=== PATIENT | female | born 1995 | race American Indian/Alaskan Native ===

== ENCOUNTER 2016-07-16 10:45 | Emergency (ER) | payer SELFPAY ==
[2016-07-16 11:00] VITALS: BP 130/87
== END 2016-07-16 11:00 | disposition left against medical advice (07) ==
LOC: ED 10:45
DX: R51 Headache (principal); R06.02 Shortness of breath; Z53.21 Procedure and treatment not carried out due to patient leaving prior to being seen by health care provider

== ENCOUNTER 2016-10-05 16:39 | Emergency (ER) | payer SELFPAY ==
--- NOTE | 2016-10-05 19:48 | Emergency Department Report ---
- General Chief complaint: Wound/Laceration Stated complaint: NAIL CAME OFF/INFECTED Time Seen by Provider: 10/05/16 19:39 Source: patient Mode of arrival: Ambulatory Limitations: No Limitations - History of Present Illness Initial comments: 21-year-old female presents to emergency room with complaints of left fifth finger nail injury since Sunday. Patient states he accidentally pulled off her acrylic nail along with the nail underneath on Sunday. This complaint of pain since then. Denies any tingling or numbness. Denies any fever. MD complaint: other (left 5th fingernail injury) -: Gradual, days(s) (4 days) Tetanus Up to Date: yes Location: LUE (left 5th finger) Severity: mild Severity scale (0 -10): 2 Quality: aching, dull Consistency: constant Improves with: none Worsens with: palpation, movement Context: other (nail avulsion) Associated symptoms: denies other symptoms - Related Data Previous Rx's Medication Instructions Recorded Last Taken Type Ondansetron [Zofran Odt] 4 mg PO Q8HR PRN #4 tab.rapdis 01/05/15 Unknown Rx Vit-Fe Fumar-FA [ 1 each PO QDAY #30 tablet 01/05/15 Unknown Rx Vitamin] Azithromycin [Zithromax Z-NOEL] 0 mg PO DAILY 5 Days 09/20/15 Unknown Rx Benzonatate [Tessalon Perles] 100 mg PO Q8HR #30 capsule 09/20/15 Unknown Rx Ibuprofen [Motrin] 800 mg PO Q8HR PRN #30 tablet 09/20/15 Unknown Rx traMADol [Ultram 50 MG tab] 50 mg PO Q6HR PRN #20 tablet 09/20/15 Unknown Rx Sulfamethoxazole/Trimethoprim 1 each PO BID #14 tablet 10/05/16 Unknown Rx [Bactrim DS TAB] traMADol [Ultram] 50 mg PO Q6HR PRN #12 tablet 10/05/16 Unknown Rx Allergies Allergy/AdvReac Type Severity Reaction Status Date / Time No Known Allergies Allergy Verified 09/28/15 18:25 Abscess Boil HPI - HPI Chief Complaint: Wound/Laceration Stated Complaint: NAIL CAME OFF/INFECTED Time Seen by Provider: 10/05/16 19:39 Home Medications: Previous Rx's Medication Instructions Recorded Last Taken Type Ondansetron [Zofran Odt] 4 mg PO Q8HR PRN #4 tab.rapdis 01/05/15 Unknown Rx Vit-Fe Fumar-FA [ 1 each PO QDAY #30 tablet 01/05/15 Unknown Rx Vitamin] Azithromycin [Zithromax Z-NOEL] 0 mg PO DAILY 5 Days 09/20/15 Unknown Rx Benzonatate [Tessalon Perles] 100 mg PO Q8HR #30 capsule 09/20/15 Unknown Rx Ibuprofen [Motrin] 800 mg PO Q8HR PRN #30 tablet 09/20/15 Unknown Rx traMADol [Ultram 50 MG tab] 50 mg PO Q6HR PRN #20 tablet 09/20/15 Unknown Rx Sulfamethoxazole/Trimethoprim 1 each PO BID #14 tablet 10/05/16 Unknown Rx [Bactrim DS TAB] traMADol [Ultram] 50 mg PO Q6HR PRN #12 tablet 10/05/16 Unknown Rx Allergies/Adverse Reactions: Allergies Allergy/AdvReac Type Severity Reaction Status Date / Time No Known Allergies Allergy Verified 09/28/15 18:25 ED Review of Systems ROS: Stated complaint: NAIL CAME OFF/INFECTED Other details as noted in HPI Comment: All other systems reviewed and negative Constitutional: denies: chills, fever Eyes: denies: eye pain, eye discharge, vision change ENT: denies: ear pain, throat pain Respiratory: denies: cough, shortness of breath, wheezing Cardiovascular: denies: chest pain, palpitations Endocrine: no symptoms reported Gastrointestinal: denies: abdominal pain, nausea, diarrhea Genitourinary: denies: urgency, dysuria, discharge Musculoskeletal: as per HPI, other (left 5th fingernail injury). denies: back pain, joint swelling, arthralgia Skin: as per HPI. denies: rash, lesions Neurological: denies: headache, weakness, paresthesias Psychiatric: denies: anxiety, depression Hematological/Lymphatic: denies: easy bleeding, easy bruising ED Past Medical Hx - Past Medical History Hx Hypertension: Yes (-induced HTN) Hx Congestive Heart Failure: No Hx Diabetes: No Hx Deep Vein Thrombosis: No Hx Renal Disease: No Hx Sickle Cell Disease: No Hx Seizures: (During ) Hx Asthma: No Hx COPD: No Hx HIV: No Additional medical history: OBESITY - Surgical History Additional Surgical History: 05/13/14 - Social History Smoking Status: Never Smoker Substance Use Type: None - Medications Home Medications: Home Medications Medication Instructions Recorded Confirmed Last Taken Type Ondansetron [Zofran Odt] 4 mg PO Q8HR PRN #4 tab.rapdis 01/05/15 Unknown Rx Vit-Fe Fumar-FA [ 1 each PO QDAY #30 tablet 01/05/15 Unknown Rx Vitamin] Azithromycin [Zithromax Z-NEOL] 0 mg PO DAILY 5 Days 09/20/15 Unknown Rx Benzonatate [Tessalon Perles] 100 mg PO Q8HR #30 capsule 09/20/15 Unknown Rx Ibuprofen [Motrin] 800 mg PO Q8HR PRN #30 tablet 09/20/15 Unknown Rx traMADol [Ultram 50 MG tab] 50 mg PO Q6HR PRN #20 tablet 09/20/15 Unknown Rx Sulfamethoxazole/Trimethoprim 1 each PO BID #14 tablet 10/05/16 Unknown Rx [Bactrim DS TAB] traMADol [Ultram] 50 mg PO Q6HR PRN #12 tablet 10/05/16 Unknown Rx ED Physical Exam - General Limitations: No Limitations General appearance: alert, in no apparent distress - Head Head exam: Present: atraumatic, normocephalic - Eye Eye exam: Present: normal appearance - ENT ENT exam: Present: mucous membranes moist - Neck Neck exam: Present: normal inspection - Respiratory Respiratory exam: Present: normal lung sounds bilaterally. Absent: respiratory distress - Cardiovascular Cardiovascular Exam: Present: regular rate, normal rhythm. Absent: systolic murmur, diastolic murmur, rubs, gallop - GI/Abdominal GI/Abdominal exam: Present: soft, normal bowel sounds - Extremities Exam Extremities exam: Present: normal inspection, full ROM, tenderness (at the left 5th finger nail), normal capillary refill - Back Exam Back exam: Present: normal inspection - Neurological Exam Neurological exam: Present: alert, oriented X3 - Psychiatric Psychiatric exam: Present: normal affect, normal mood - Skin Skin exam: Present: warm, dry, intact, normal color. Absent: rash ED Course Vital Signs 10/05/16 17:24 Temperature 98.6 F Pulse Rate 78 Respiratory 18 Rate Blood Pressure 126/72 O2 Sat by Pulse 99 Oximetry Critical Care Time: No Critical care attestation.: If time is entered above; I have spent that time in minutes in the direct care of this critically ill patient, excluding procedure time. ED Disposition Clinical Impression: Traumatic avulsion of nail plate of finger Qualifiers: Encounter type: initial encounter Qualified Code(s): S61.309A - Unspecified open wound of unspecified finger with damage to nail, initial encounter Disposition: DISCHARGED TO HOME OR SELFCARE Is pt being admited?: No Does the pt Need Aspirin: No Condition: Good Instructions: Wound Infection (ED) Prescriptions: Sulfamethoxazole/Trimethoprim [Bactrim DS TAB] 1 each PO BID #14 tablet traMADol [Ultram] 50 mg PO Q6HR PRN #12 tablet PRN Reason: Pain Referrals: PRIMARY CARE, [Primary Care Provider] - 3-5 Days
[2016-10-05] MEDS ORDERED: TRIPLE ANTIBIOTIC TP ONE (19:49)
[2016-10-05 20:21] VITALS: BP 122/70
== END 2016-10-05 20:21 | disposition home or self-care (01) ==
LOC: ED 16:39
DX: S61.207A Unspecified open wound of left little finger without damage to nail, initial encounter (principal); X58.XXXA Exposure to other specified factors, initial encounter; Y93.89 Activity, other specified; Y99.8 Other external cause status; Y92.89 Other specified places as the place of occurrence of the external cause
CPT/HCPCS: 99282; A6250

== ENCOUNTER 2017-05-29 22:08 | Emergency (ER) | payer MEDICAID ==
[2017-05-29 22:13] VITALS: BP 135/83
[2017-05-30] MEDS ORDERED: TYLENOL PO ONE (00:40)
[2017-05-30] MEDS ORDERED: TYLENOL ONE (00:43)
== END 2017-05-30 06:58 | disposition left against medical advice (07) ==
LOC: ED 22:08
DX: L02.31 Cutaneous abscess of buttock (principal); Z53.21 Procedure and treatment not carried out due to patient leaving prior to being seen by health care provider

== ENCOUNTER 2017-05-30 07:47 | Emergency (ER) | payer MEDICAID ==
[2017-05-30 07:57] VITALS: BP 127/83
[2017-05-30] MEDS ORDERED: XYLOCAINE TOPICAL 2% 30ML TP ONE (10:53)
[2017-05-30] MEDS ORDERED: XYLOCAINE TOPICAL 2% 5ML ONE (11:01)
--- NOTE | 2017-05-30 11:19 | Emergency Department Report ---
HPI - General Chief Complaint: Skin/Abscess/Foreign Body Time Seen by Provider: 05/30/17 10:34 - HPI HPI: She is a 22-year-old female presents to ED complaining of buttock pain for the past 2 days. Patient states she has been constipated but had a bowel movement yesterday. Patient states shortly after the bowel movement she started experiencing some swelling and pain to her buttock upper region. She states of the left buttock upper cheek in that region is irritated and she noticed some yellowish drainage and mild redness. She had tenderness fever/chills/nausea/vomiting/abdominal pain/pelvic/vaginal discharge, dysuria or any other problems. ED Past Medical Hx - Past Medical History Previous Medical History?: Yes Hx Hypertension: (-induced HTN) Hx Congestive Heart Failure: No Hx Diabetes: No Hx Deep Vein Thrombosis: No Hx Renal Disease: No Hx Sickle Cell Disease: No Hx Seizures: (During ) Hx Asthma: No Hx COPD: No Hx HIV: No Additional medical history: OBESITY - Surgical History Past Surgical History?: Yes Additional Surgical History: 05/13/14 - Social History Smoking Status: Never Smoker Substance Use Type: Non Opiate Pain - Medications Home Medications: Home Medications Medication Instructions Recorded Confirmed Last Taken Type Ondansetron [Zofran Odt] 4 mg PO Q8HR PRN #4 tab.rapdis 01/05/15 Unknown Rx Vit-Fe Fumar-FA [ 1 each PO QDAY #30 tablet 01/05/15 Unknown Rx Vitamin] Azithromycin [Zithromax Z-NOEL] 0 mg PO DAILY 5 Days tab 09/20/15 Unknown Rx Benzonatate [Tessalon Perles] 100 mg PO Q8HR #30 capsule 09/20/15 Unknown Rx traMADol [Ultram 50 MG tab] 50 mg PO Q6HR PRN #20 tablet 09/20/15 Unknown Rx traMADol [Ultram] 50 mg PO Q6HR PRN #12 tablet 10/05/16 Unknown Rx Ibuprofen [Motrin 800 MG tab] 800 mg PO Q8HR PRN #30 tablet 05/30/17 Unknown Rx Sulfamethoxazole/Trimethoprim 1 each PO BID #14 tablet 05/30/17 Unknown Rx [Bactrim DS TAB] ED Review of Systems ROS: Stated complaint: ABSCESS ON BUTTOCK Other details as noted in HPI Constitutional: denies: chills, fever Eyes: denies: eye pain, eye discharge, vision change ENT: denies: ear pain, throat pain Respiratory: denies: cough, shortness of breath, wheezing Cardiovascular: denies: chest pain, palpitations Endocrine: no symptoms reported Gastrointestinal: denies: abdominal pain, nausea, diarrhea Genitourinary: denies: urgency, dysuria, discharge Musculoskeletal: denies: back pain, joint swelling, arthralgia Skin: denies: rash, lesions Neurological: denies: headache, weakness, paresthesias Psychiatric: denies: anxiety, depression Hematological/Lymphatic: denies: easy bleeding, easy bruising Physical Exam - Physical Exam Vital Signs: Vital Signs 05/30/17 07:53 Temperature 97.9 F Pulse Rate 98 H Respiratory 20 Rate Blood Pressure 127/83 O2 Sat by Pulse 97 Oximetry Physical Exam: GENERAL: Alert and oriented x3, no apparent distress, Normal Gait, atraumatic. HEAD: Head is normocephalic and a-traumatic. LUNGS: Symetrical with respiration, No wheezing, no rales or crackles, CTAB. HEART: S1, S2 present, regular rate and rhythm without murmur, no rubs, no gallops. Non tender to palpation ABDOMEN: No organomegaly was noted,Positive bowel sounds, soft, and non- distended. . Nontender to palpation on all Quadrants, NO CVA tenderness. BACK: Full range of motion, no spinal tenderness, nontender to palpation. GENITOURINARY: External genitalia without erythema, exudate or discharge. RECTUM: Left upper buttock mildly erythematous, cellulitis, tender to palpation , 2cm in diameter, non drainage,non bleeding. No hemorrhoids SKIN: Warm and dry, No lesions, No ulceration or induration present. ED Course Vital Signs 05/30/17 07:53 Temperature 97.9 F Pulse Rate 98 H Respiratory 20 Rate Blood Pressure 127/83 O2 Sat by Pulse 97 Oximetry ED Medical Decision Making - Medical Decision Making 22-year-old female presents with left buttock cellulitis ED course: Topical lidocaine applied to area of cellulitis I discussed with patient that she will need to do sits baths him do warm compression 2 times a day. Patient's declines trained to 2 pain and states she will take some antibiotics and return if he gets worse. Area of cellulitis is about 2 cm, no bleeding, no pus discharge I discussed the patient with home on trial of antibiotics and pain medication and to return if symptoms worsen I discussed the patient that the cellulitis the resolve on its own. I find discussed the patient follow up with primary care physician Vital signs are normal, she is in no acute distress, she understands instructions given Critical care attestation.: If time is entered above; I have spent that time in minutes in the direct care of this critically ill patient, excluding procedure time. ED Disposition Clinical Impression: Cellulitis of perianal area Disposition: TO HOME OR SELFCARE Is pt being admited?: No Does the pt Need Aspirin: No Condition: Stable Instructions: Cellulitis (ED), Anorectal Abscess and Anal Fistula (ED), Sitz Bath (GEN) Additional Instructions: Make sure to follow up with the primary care physician as discussed. Take all your medications as you've been prescribed. If you have any worsening symptoms or develop new symptoms please return to ED immediately. Take all your antibiotics. Prescriptions: Ibuprofen [Motrin 800 MG tab] 800 mg PO Q8HR PRN #30 tablet PRN Reason: Pain Sulfamethoxazole/Trimethoprim [Bactrim DS TAB] 1 each PO BID #14 tablet Referrals: PRIMARY CARE, [Primary Care Provider] - 3-5 Days [facility] [Outside] - 3-5 Days [facility] [Outside] - 3-5 Days [facility] [Outside] - 3-5 Days Forms: Accompanied Note, Work/School Release Form(ED) Time of Disposition: 13:07
[2017-05-30] MEDS ORDERED: REGLAN PO ONE (11:38)
[2017-05-30] MEDS ORDERED: BENADRYL PO ONE (11:38)
== END 2017-05-30 13:41 | disposition home or self-care (01) ==
LOC: ED 07:47
DX: L03.317 Cellulitis of buttock (principal)
CPT/HCPCS: 99282; Q0163

== ENCOUNTER 2017-09-29 08:26 | Emergency (ER) | payer MEDICAID ==
[2017-09-29 09:03] LABS: Basophils # (Auto) 0.1 K/mm3 (0.0-0.1); Basophils % (Auto) 0.4 % (0.0-1.8); Eosinophils # (Auto) 0.1 K/mm3 (0.0-0.4); Eosinophils % (Auto) 0.4 % (0.0-4.3); Hematocrit 44.2 % (30.3-42.9); Hemoglobin 13.9 gm/dl (10.1-14.3); Lymphocytes # (Auto) 2.3 K/mm3 (1.2-5.4); Lymphocytes % (Auto) 15.4 % (13.4-35.0); Mean Corpuscular HGB Conc 32 % (30-34); Mean Corpuscular Volume 79 fl (79-97); Monocytes # (Auto) 0.7 K/mm3 (0.0-0.8); Monocytes % (Auto) 4.6 % (0.0-7.3); Platelet Count 338 K/mm3 (140-440); Red Blood Count 5.58 M/mm3 (3.65-5.03); Red Cell Distribution Width 14.6 % (13.2-15.2)
[2017-09-29 09:04] LABS: Mean Corpuscular Hemoglobin 25 pg (28-32)
[2017-09-29 09:05] LABS: HCG Qualitative,Urine Negative (Negative)
[2017-09-29 09:06] LABS: Bacteria,Urine 2+ /HPF (Negative); Bilirubin,Urine NEG (Negative); Blood,Urine LG (Negative); Color,Urine Yellow (Yellow); Urobilinogen,Urine < 2.0 mg/dL (<2.0)
[2017-09-29 09:10] LABS: RBC,Urine > 182.0 /HPF (0.0-6.0); WBC,Urine > 182.0 /HPF (0.0-6.0)
[2017-09-29 09:23] LABS: BUN/Creatinine Ratio 17; Blood Urea Nitrogen 12 mg/dL (7-17); Calcium 9.6 mg/dL (8.4-10.2); Hemolysis Index 7
[2017-09-29] MEDS ORDERED: ROCEPHIN IM ONE (11:21)
[2017-09-29] MEDS ORDERED: XYLOCAINE 1% MPF 5 mL INFILTRATI ONE (11:21)
--- NOTE | 2017-09-29 11:24 | Emergency Department Report ---
ED Abdominal Pain HPI - General Chief Complaint: Abdominal Pain Stated Complaint: ABDOMINAL PAIN Time Seen by Provider: 09/29/17 10:59 Source: patient Mode of arrival: Ambulatory Limitations: Language Barrier - History of Present Illness Initial Comments: Patient has been having pelvic pain for two days. She has also been "spotting" . She states she had her menstrual cycle twice in August, once at the beginning , and once at the end of the month. Both times it lasted 5 days. MD Complaint: abdominal pain -: days(s) (2) Severity scale (0 -10): 3 - Related Data Previous Rx's Medication Instructions Recorded Last Taken Type Ondansetron [Zofran Odt] 4 mg PO Q8HR PRN #4 tab.rapdis 01/05/15 Unknown Rx Vit-Fe Fumar-FA [ 1 each PO QDAY #30 tablet 01/05/15 Unknown Rx Vitamin] Azithromycin [Zithromax Z-NOEL] 0 mg PO DAILY 5 Days tab 09/20/15 Unknown Rx Benzonatate [Tessalon Perles] 100 mg PO Q8HR #30 capsule 09/20/15 Unknown Rx traMADol [Ultram 50 MG tab] 50 mg PO Q6HR PRN #20 tablet 09/20/15 Unknown Rx traMADol [Ultram] 50 mg PO Q6HR PRN #12 tablet 10/05/16 Unknown Rx Ibuprofen [Motrin 800 MG tab] 800 mg PO Q8HR PRN #30 tablet 05/30/17 Unknown Rx Sulfamethoxazole/Trimethoprim 1 each PO BID #14 tablet 05/30/17 Unknown Rx [Bactrim DS TAB] Ciprofloxacin HCl [Cipro] 250 mg PO BID 7 Days #14 tablet 09/29/17 Unknown Rx Allergies Allergy/AdvReac Type Severity Reaction Status Date / Time No Known Allergies Allergy Verified 05/29/17 22:11 ED Review of Systems ROS: Stated complaint: ABDOMINAL PAIN Other details as noted in HPI Constitutional: denies: chills, fever Eyes: denies: eye pain, eye discharge, vision change ENT: denies: ear pain, throat pain Respiratory: denies: cough, shortness of breath, wheezing Cardiovascular: denies: chest pain, palpitations Endocrine: no symptoms reported Gastrointestinal: denies: abdominal pain, nausea, diarrhea Genitourinary: abnormal menses, other (pelvic pain). denies: urgency, dysuria, discharge Musculoskeletal: denies: back pain, joint swelling, arthralgia Skin: denies: rash, lesions Neurological: denies: headache, weakness, paresthesias Psychiatric: denies: anxiety, depression Hematological/Lymphatic: denies: easy bleeding, easy bruising ED Past Medical Hx - Past Medical History Hx Hypertension: (-induced HTN) Hx Congestive Heart Failure: No Hx Diabetes: No Hx Deep Vein Thrombosis: No Hx Renal Disease: No Hx Sickle Cell Disease: No Hx Seizures: (During ) Hx Asthma: No Hx COPD: No Hx HIV: No Additional medical history: OBESITY, eclampsia - Surgical History Past Surgical History?: Yes Additional Surgical History: 05/13/14 - Social History Smoking Status: Never Smoker Substance Use Type: None - Medications Home Medications: Home Medications Medication Instructions Recorded Confirmed Last Taken Type Ondansetron [Zofran Odt] 4 mg PO Q8HR PRN #4 tab.rapdis 01/05/15 Unknown Rx Vit-Fe Fumar-FA [ 1 each PO QDAY #30 tablet 01/05/15 Unknown Rx Vitamin] Azithromycin [Zithromax Z-NOEL] 0 mg PO DAILY 5 Days tab 09/20/15 Unknown Rx Benzonatate [Tessalon Perles] 100 mg PO Q8HR #30 capsule 09/20/15 Unknown Rx traMADol [Ultram 50 MG tab] 50 mg PO Q6HR PRN #20 tablet 09/20/15 Unknown Rx traMADol [Ultram] 50 mg PO Q6HR PRN #12 tablet 10/05/16 Unknown Rx Ibuprofen [Motrin 800 MG tab] 800 mg PO Q8HR PRN #30 tablet 05/30/17 Unknown Rx Sulfamethoxazole/Trimethoprim 1 each PO BID #14 tablet 05/30/17 Unknown Rx [Bactrim DS TAB] Ciprofloxacin HCl [Cipro] 250 mg PO BID 7 Days #14 tablet 09/29/17 Unknown Rx ED Physical Exam - General Limitations: Language Barrier General appearance: alert, in no apparent distress - Head Head exam: Present: atraumatic, normocephalic - Eye Eye exam: Present: normal appearance - ENT ENT exam: Present: mucous membranes moist - Neck Neck exam: Present: normal inspection - Respiratory Respiratory exam: Present: normal lung sounds bilaterally. Absent: respiratory distress - Cardiovascular Cardiovascular Exam: Present: regular rate, normal rhythm. Absent: systolic murmur, diastolic murmur, rubs, gallop - GI/Abdominal GI/Abdominal exam: Present: soft, tenderness (suprapubic), normal bowel sounds - Extremities Exam Extremities exam: Present: normal inspection - Back Exam Back exam: Present: normal inspection - Neurological Exam Neurological exam: Present: alert, oriented X3 - Psychiatric Psychiatric exam: Present: normal affect, normal mood - Skin Skin exam: Present: warm, dry, intact, normal color. Absent: rash ED Course Vital Signs 09/29/17 09/29/17 08:30 10:45 Temperature 98.6 F Pulse Rate 73 67 Respiratory 16 Rate Blood Pressure 132/82 Blood Pressure 138/83 [Left] O2 Sat by Pulse 99 99 Oximetry - Reevaluation(s) Reevaluation #1: 09/29/17 11:20 Uneventful course of stay. ED Medical Decision Making - Lab Data Result diagrams: 09/29/17 08:43 09/29/17 08:43 - Medical Decision Making Review of labs - Patient has a 14.2 WBC; Urine: elevated WBC and RBCs. - Differential Diagnosis UTI; STD Critical care attestation.: If time is entered above; I have spent that time in minutes in the direct care of this critically ill patient, excluding procedure time. ED Disposition Clinical Impression: UTI (urinary tract infection) Disposition: - TO HOME OR SELFCARE Is pt being admited?: No Does the pt Need Aspirin: No Condition: Stable Instructions: Abdominal Pain (ED) Additional Instructions: UTI Prescriptions: Ciprofloxacin HCl [Cipro] 250 mg PO BID 7 Days #14 tablet Referrals: CHELLE FAULKNER MD [Primary Care Provider] - 3-5 Days Time of Disposition: 11:33
[2017-09-29 12:06] VITALS: BP 129/78
== END 2017-09-29 12:05 | disposition home or self-care (01) ==
LOC: ED 08:26
DX: N39.0 Urinary tract infection, site not specified (principal)
CPT/HCPCS: 36415; 80048; 81001; 81025; 85025; 96372; 99283; J0696

== ENCOUNTER 2019-02-14 11:19 | Emergency (ER) | payer SELFPAY ==
[2019-02-14 11:32] VITALS: BP 129/65
--- NOTE | 2019-02-14 11:32 | Event Note ---
ED Screening Note ED Screening Note: LMP 7-9, NO OB CARE, JUST FOUND OUT 2 DAYS AGO PAIN MID BACK NO VAG BLEED NO VAG DC NO DYSURIA NO CONTROL PMH NONE PSH CSEC RX NONE OB [facility] This initial assessment/diagnostic orders/clinical plan/treatment(s) is/are subject to change based on patients health status, clinical progression and re- assessment by fellow clinical providers in the ED. Further treatment and workup at subsequent clinical providers discretion. Patient/guardian urged not to elope from the ED as their condition may be serious if not clinically assessed and managed. Initial orders include: UA/ PREG
[2019-02-14 12:01] LABS: Bacteria,Urine 2+ /HPF (Negative); Bilirubin,Urine NEG (Negative); Blood,Urine NEG (Negative); Color,Urine Yellow (Yellow); Mucus,Urine FEW /HPF; Protein,Urine <15 mg/dL mg/dL (Negative)
[2019-02-14 12:09] LABS: Hematocrit 39.3 % (30.3-42.9); Hemoglobin 13.5 gm/dl (10.1-14.3); Mean Corpuscular HGB Conc 34 % (30-34); Mean Corpuscular Volume 81 fl (79-97); Platelet Count 251 K/mm3 (140-440); Red Blood Count 4.86 M/mm3 (3.65-5.03); Red Cell Distribution Width 14.6 % (13.2-15.2)
[2019-02-14 12:13] LABS: HCG Qualitative,Urine Positive (Negative)
[2019-02-14 12:39] LABS: BUN/Creatinine Ratio 10; Blood Urea Nitrogen 6 mg/dL (7-17); Calcium 9.2 mg/dL (8.4-10.2); Hemolysis Index 8
--- NOTE | 2019-02-14 15:01 | Ultrasound Report ---
FIRSTTRIMESTER OBSTETRIC ULTRASOUND HISTORY: Vaginal bleeding, pain COMPARISON: None. TECHNIQUE: Routine transabdominal OB ultrasound performed. FINDINGS: Uterus: Mildly enlarged measuring 10.5 x 5.8 x 5.8 cm. Gestational Sac: Well-defined oval shape and intrauterine in location. Average gestational sac diame ter measures 14 mm which correlates with a 6 week 2 day . Yolk Sac: Normal in appearance. Fetus/Embryo: Normal in appearance. [place]-rump length was too small to measure and the patient refuse d transvaginal imaging. Embryonic/ cardiac activity: 112bpm Placenta: Too small for evaluation. Amniotic fluid volume: Subjectively appropriate for gestational age. Ovaries: The ovaries are not visualized. No adnexal cyst or mass. Additional findings: None. IMPRESSION Early live intrauterine . No acute abnormality is detected. Signer Name: Aric Mcmahan Jr, MD Signed: 02/14/2019 2:56 PM Workstation Name: [id number]
--- NOTE | 2019-02-14 16:26 | Emergency Department Report ---
Blank Doc - Documentation Documentation: 23-year-old female came in for positive test and abdominal pain. This provider made attempt to evaluate patient but she was not in exam room. It was reported the patient has left. Patient has eloped. Attending provider Dr. Prema Lopez is aware of the patient leaving without being evaluated.
== END 2019-02-14 13:45 | disposition left against medical advice (07) ==
LOC: ED 11:19
DX: R10.9 Unspecified abdominal pain (principal); Z53.21 Procedure and treatment not carried out due to patient leaving prior to being seen by health care provider
CPT/HCPCS: 36415; 76801; 80048; 81001; 81025; 84702; 85027; 86900; 86901

== ENCOUNTER 2019-03-24 10:26 | Emergency (ER) | payer OTHER ==
[2019-03-24 10:36] VITALS: BP 130/77
[2019-03-24 12:11] LABS: Basophils # (Auto) 0.1 K/mm3 (0.0-0.1); Basophils % (Auto) 0.5 % (0.0-1.8); Eosinophils # (Auto) 0.2 K/mm3 (0.0-0.4); Eosinophils % (Auto) 1.4 % (0.0-4.3); Hematocrit 39.8 % (30.3-42.9); Hemoglobin 13.2 gm/dl (10.1-14.3); Lymphocytes # (Auto) 2.2 K/mm3 (1.2-5.4); Lymphocytes % (Auto) 19.8 % (13.4-35.0); Mean Corpuscular HGB Conc 33 % (30-34); Mean Corpuscular Volume 80 fl (79-97); Monocytes # (Auto) 0.6 K/mm3 (0.0-0.8); Monocytes % (Auto) 5.7 % (0.0-7.3); Platelet Count 283 K/mm3 (140-440); Red Blood Count 4.98 M/mm3 (3.65-5.03); Red Cell Distribution Width 13.8 % (13.2-15.2)
[2019-03-24 12:28] LABS: Alanine Aminotransferase 11 units/L (7-56); Albumin 4.1 g/dL (3.9-5); BUN/Creatinine Ratio 10; Blood Urea Nitrogen 5 mg/dL (7-17); Calcium 9.8 mg/dL (8.4-10.2); Hemolysis Index 0
[2019-03-24 12:36] LABS: Bacteria,Urine 1+ /HPF (Negative); Bilirubin,Urine NEG (Negative); Blood,Urine LG (Negative); Color,Urine Yellow (Yellow); Protein,Urine <15 mg/dL mg/dL (Negative); RBC,Urine < 1.0 /HPF (0.0-6.0)
--- NOTE | 2019-03-24 12:58 | Ultrasound Report ---
FIRSTTRIMESTER OBSTETRIC ULTRASOUND HISTORY: 8 weeks with abdominal pain and vaginal bleeding COMPARISON: 02/14/2019 TECHNIQUE: Routine transabdominal OB ultrasound performed. FINDINGS: Uterus: Mildly enlarged measuring 14.6 x 7.2 x 8.7 cm. Gestational Sac: Well-defined oval shape and intrauterine in location. Yolk Sac: Normal in appearance. Fetus/Embryo: [place]-rump length of 5.4 cm, corresponding to an estimated gestational age of 12 weeks 0 days. Embryonic/ anatomy is too small for evaluation. Embryonic/ cardiac activity: 156bpm Placenta: Too small for evaluation. Amniotic fluid volume: Subjectively appropriate for gestational age. Ovaries: The right ovary is normal in size and appearance with normal blood flow, measuring 3.7 x 1. 7 x 4.1 cm. The left ovary is normal in size and appearance with normal blood flow, measuring 3.4 x 1.7 x 4.3 cm. Additional findings: A subchorionic hemorrhage along the superior border of the gestational sac measu res 1.1 x 2.4 cm. IMPRESSION Early live intrauterine . Subchorionic hemorrhage. Signer Name: Aric Mcmahan Jr, MD Signed: 03/24/2019 12:54 PM Workstation Name: [id number]
--- NOTE | 2019-03-24 13:25 | Emergency Department Report ---
ED General Adult HPI - General Chief complaint: Vaginal Bleeding Stated complaint: 8/12 WKS /BLEEDING/PAIN Time Seen by Provider: 03/24/19 11:24 Source: patient Mode of arrival: Ambulatory Limitations: No Limitations - History of Present Illness Initial comments: The patient presents to the emergency department with a chief complaint of vaginal bleeding that has become progressively worse overnight. Patient is a and states she is approximately 8-12 weeks . Patient states her last was complicated with a diagnosis of eclampsia with the baby being delivered emergently via section. The patient also complains of some abdominal cramping as well. -: Sudden Severity scale (0 -10): 2 Quality: other (cramping) Consistency: intermittent Improves with: none Worsens with: none Associated Symptoms: denies other symptoms Treatments Prior to Arrival: none - Related Data Previous Rx's Medication Instructions Recorded Last Taken Type Ondansetron [Zofran Odt] 4 mg PO Q8HR PRN #4 tab.rapdis 01/05/15 Unknown Rx Vit-Fe Fumar-FA [ 1 each PO QDAY #30 tablet 01/05/15 Unknown Rx Vitamin] Azithromycin [Zithromax Z-NOEL] 0 mg PO DAILY 5 Days tab 09/20/15 Unknown Rx Benzonatate [Tessalon Perles] 100 mg PO Q8HR #30 capsule 09/20/15 Unknown Rx traMADol [Ultram 50 MG tab] 50 mg PO Q6HR PRN #20 tablet 09/20/15 Unknown Rx traMADol [Ultram] 50 mg PO Q6HR PRN #12 tablet 10/05/16 Unknown Rx Sulfamethoxazole/Trimethoprim 1 each PO BID #14 tablet 05/30/17 Unknown Rx [Bactrim DS TAB] Ciprofloxacin HCl [Cipro] 250 mg PO BID 7 Days #14 tablet 09/29/17 Unknown Rx Ibuprofen [Motrin 800 MG tab] 800 mg PO Q8HR PRN #20 tablet 11/07/18 Unknown Rx Allergies Allergy/AdvReac Type Severity Reaction Status Date / Time No Known Allergies Allergy Verified 05/29/17 22:11 ED Review of Systems ROS: Stated complaint: 8/12 WKS /BLEEDING/PAIN Other details as noted in HPI Comment: All other systems reviewed and negative Constitutional: denies: chills, fever Eyes: denies: eye pain, eye discharge, vision change ENT: denies: ear pain, throat pain Respiratory: denies: cough, shortness of breath, wheezing Cardiovascular: denies: chest pain, palpitations Endocrine: no symptoms reported Gastrointestinal: abdominal pain. denies: nausea, diarrhea Genitourinary: denies: urgency, dysuria, discharge Musculoskeletal: denies: back pain, joint swelling, arthralgia Skin: denies: rash, lesions Neurological: denies: headache, weakness, paresthesias Psychiatric: denies: anxiety, depression Hematological/Lymphatic: denies: easy bleeding, easy bruising ED Past Medical Hx - Past Medical History Previous Medical History?: Yes Hx Hypertension: (-induced HTN) Hx Congestive Heart Failure: No Hx Diabetes: No Hx Deep Vein Thrombosis: No Hx Renal Disease: No Hx Sickle Cell Disease: No Hx Seizures: (During ) Hx Asthma: No Hx COPD: No Hx HIV: No Additional medical history: OBESITY, eclampsia - Surgical History Past Surgical History?: Yes Additional Surgical History: 05/13/14 - Social History Smoking Status: Never Smoker Substance Use Type: None - Medications Home Medications: Home Medications Medication Instructions Recorded Confirmed Last Taken Type Ondansetron [Zofran Odt] 4 mg PO Q8HR PRN #4 tab.rapdis 01/05/15 Unknown Rx Vit-Fe Fumar-FA [ 1 each PO QDAY #30 tablet 01/05/15 Unknown Rx Vitamin] Azithromycin [Zithromax Z-NOEL] 0 mg PO DAILY 5 Days tab 09/20/15 Unknown Rx Benzonatate [Tessalon Perles] 100 mg PO Q8HR #30 capsule 09/20/15 Unknown Rx traMADol [Ultram 50 MG tab] 50 mg PO Q6HR PRN #20 tablet 09/20/15 Unknown Rx traMADol [Ultram] 50 mg PO Q6HR PRN #12 tablet 10/05/16 Unknown Rx Sulfamethoxazole/Trimethoprim 1 each PO BID #14 tablet 05/30/17 Unknown Rx [Bactrim DS TAB] Ciprofloxacin HCl [Cipro] 250 mg PO BID 7 Days #14 tablet 09/29/17 Unknown Rx Ibuprofen [Motrin 800 MG tab] 800 mg PO Q8HR PRN #20 tablet 11/07/18 Unknown Rx ED Physical Exam - General Limitations: No Limitations General appearance: alert, in no apparent distress - Head Head exam: Present: atraumatic, normocephalic - Eye Eye exam: Present: normal appearance, PERRL, EOMI - ENT ENT exam: Present: mucous membranes moist - Neck Neck exam: Present: normal inspection - Respiratory Respiratory exam: Present: normal lung sounds bilaterally. Absent: respiratory distress - Cardiovascular Cardiovascular Exam: Present: regular rate, normal rhythm. Absent: systolic murmur, diastolic murmur, rubs, gallop - GI/Abdominal GI/Abdominal exam: Present: soft, normal bowel sounds. Absent: distended, tenderness - Rectal Rectal exam: Present: deferred - Extremities Exam Extremities exam: Present: normal inspection - Back Exam Back exam: Present: normal inspection - Neurological Exam Neurological exam: Present: alert, oriented X3, CN II-XII intact. Absent: motor sensory deficit - Psychiatric Psychiatric exam: Present: normal affect, normal mood - Skin Skin exam: Present: warm, dry, intact, normal color. Absent: rash ED Course Vital Signs 03/24/19 03/24/19 10:35 11:18 Temperature 98.7 F 98.7 F Pulse Rate 69 69 Respiratory 18 18 Rate Blood Pressure 130/77 Blood Pressure 130/77 [Right] O2 Sat by Pulse 97 97 Oximetry ED Medical Decision Making - Lab Data Result diagrams: 03/24/19 11:46 03/24/19 11:46 Lab Results 03/24/19 03/24/19 03/24/19 Range/Units 11:44 11:46 11:46 WBC 11.4 H (4.5-11.0) K/mm3 RBC 4.98 (3.65-5.03) M/mm3 Hgb 13.2 (10.1-14.3) gm/dl Hct 39.8 (30.3-42.9) % MCV 80 (79-97) fl MCH 27 L (28-32) pg MCHC 33 (30-34) % RDW 13.8 (13.2-15.2) % Plt Count 283 (140-440) K/mm3 Lymph % (Auto) 19.8 (13.4-35.0) % Addison % (Auto) 5.7 (0.0-7.3) % Eos % (Auto) 1.4 (0.0-4.3) % Baso % (Auto) 0.5 (0.0-1.8) % Lymph # 2.2 (1.2-5.4) K/mm3 Addison # 0.6 (0.0-0.8) K/mm3 Eos # 0.2 (0.0-0.4) K/mm3 Baso # 0.1 (0.0-0.1) K/mm3 Seg Neutrophils % 72.6 H (40.0-70.0) % Seg Neutrophils # 8.3 H (1.8-7.7) K/mm3 Sodium 137 (137-145) mmol/L Potassium 3.9 (3.6-5.0) mmol/L Chloride 99.0 (98-107) mmol/L Carbon Dioxide 23 (22-30) mmol/L Anion Gap 19 mmol/L BUN 5 L (7-17) mg/dL Creatinine 0.5 L (0.7-1.2) mg/dL Estimated GFR > 60 ml/min BUN/Creatinine Ratio 10 % Glucose 87 (65-100) mg/dL Calcium 9.8 (8.4-10.2) mg/dL Total Bilirubin 0.40 (0.1-1.2) mg/dL AST 13 (5-40) units/L ALT 11 (7-56) units/L Alkaline Phosphatase 66 (35-129) units/L Total Protein 8.7 H (6.3-8.2) g/dL Albumin 4.1 (3.9-5) g/dL Albumin/Globulin Ratio 0.9 % HCG, Quant (0-4) mIU/mL Urine Color Yellow (Yellow) Urine Turbidity Slightly-cloudy (Clear) Urine pH 7.0 (5.0-7.0) Ur Specific [place] 1.013 (1.003-1.030) Urine Protein <15 mg/dl (Negative) mg/dL Urine Glucose (UA) Neg (Negative) mg/dL Urine Ketones Neg (Negative) mg/dL Urine Blood Lg (Negative) Urine Nitrite Neg (Negative) Urine Bilirubin Neg (Negative) Urine Urobilinogen 4.0 (<2.0) mg/dL Ur Leukocyte Esterase Neg (Negative) Urine WBC (Auto) 2.0 (0.0-6.0) /HPF Urine RBC (Auto) < 1.0 (0.0-6.0) /HPF U Epithel Cells (Auto) 12.0 (0-13.0) /HPF Urine Bacteria (Auto) 1+ (Negative) /HPF 03/24/19 Range/Units 11:46 WBC (4.5-11.0) K/mm3 RBC (3.65-5.03) M/mm3 Hgb (10.1-14.3) gm/dl Hct (30.3-42.9) % MCV (79-97) fl MCH (28-32) pg MCHC (30-34) % RDW (13.2-15.2) % Plt Count (140-440) K/mm3 Lymph % (Auto) (13.4-35.0) % Addison % (Auto) (0.0-7.3) % Eos % (Auto) (0.0-4.3) % Baso % (Auto) (0.0-1.8) % Lymph # (1.2-5.4) K/mm3 Addison # (0.0-0.8) K/mm3 Eos # (0.0-0.4) K/mm3 Baso # (0.0-0.1) K/mm3 Seg Neutrophils % (40.0-70.0) % Seg Neutrophils # (1.8-7.7) K/mm3 Sodium (137-145) mmol/L Potassium (3.6-5.0) mmol/L Chloride (98-107) mmol/L Carbon Dioxide (22-30) mmol/L Anion Gap mmol/L BUN (7-17) mg/dL Creatinine (0.7-1.2) mg/dL Estimated GFR ml/min BUN/Creatinine Ratio % Glucose (65-100) mg/dL Calcium (8.4-10.2) mg/dL Total Bilirubin (0.1-1.2) mg/dL AST (5-40) units/L ALT (7-56) units/L Alkaline Phosphatase (35-129) units/L Total Protein (6.3-8.2) g/dL Albumin (3.9-5) g/dL Albumin/Globulin Ratio % HCG, Quant 04563 H (0-4) mIU/mL Urine Color (Yellow) Urine Turbidity (Clear) Urine pH (5.0-7.0) Ur Specific [place] (1.003-1.030) Urine Protein (Negative) mg/dL Urine Glucose (UA) (Negative) mg/dL Urine Ketones (Negative) mg/dL Urine Blood (Negative) Urine Nitrite (Negative) Urine Bilirubin (Negative) Urine Urobilinogen (<2.0) mg/dL Ur Leukocyte Esterase (Negative) Urine WBC (Auto) (0.0-6.0) /HPF Urine RBC (Auto) (0.0-6.0) /HPF U Epithel Cells (Auto) (0-13.0) /HPF Urine Bacteria (Auto) (Negative) /HPF - Medical Decision Making Discussed results with patient Critical care attestation.: If time is entered above; I have spent that time in minutes in the direct care of this critically ill patient, excluding procedure time. ED Disposition Clinical Impression: Vaginal bleeding during , Threatened miscarriage in early Disposition: TO HOME OR SELFCARE Is pt being admited?: No Does the pt Need Aspirin: No Condition: Stable Instructions: Threatened Miscarriage (ED) Additional Instructions: return if worse Referrals: PRIMARY CARE, [Primary Care Provider] - 3-5 Days [facility] [Provider Group] - 3-5 Days [facility] [Provider Group] - 3-5 Days Time of Disposition: 13:25
== END 2019-03-24 13:40 | disposition home or self-care (01) ==
LOC: ED 10:26
DX: O20.0 Threatened abortion (principal); Z3A.11 11 weeks gestation of pregnancy; I10 Essential (primary) hypertension; Z79.899 Other long term (current) drug therapy
CPT/HCPCS: 36415; 76801; 80053; 81001; 84702; 85025

== ENCOUNTER 2019-05-27 11:05 | Outpatient (CLI) | payer OTHER, MEDICAID ==
[2019-05-27 11:36] VITALS: BP 107/59
== END 2019-05-27 12:07 | disposition home or self-care (01) ==
LOC: TRG 11:05
PROVIDERS: ATTEND Obstetrics & Gynecology
DX: O47.02 False labor before 37 completed weeks of gestation, second trimester (principal); Z3A.21 21 weeks gestation of pregnancy

== ENCOUNTER 2019-07-16 10:46 | Outpatient (CLI) | payer OTHER, MEDICAID ==
--- NOTE | 2019-07-16 02:15 | Emergency Department Report ---
ED Abdominal Pain HPI - General Chief Complaint: Chest Pain Time Seen by Provider: 07/16/19 02:05 Source: patient Mode of arrival: Ambulatory Limitations: No Limitations - History of Present Illness Initial Comments: Lilo is a 24-year-old female that just emergency room with complaints of right lower quadrant abdominal pain. Patient states that the abdominal pain started earlier today. Patient states that her abdominal pain is worse with movement and deep breath. Patient denies fever and chills. Patient denies vaginal bleeding. Patient denies cough. Patient states her pain is also worse with movement and standing. Patient states her abdominal pain is a 9 out of 10. Patient states urinary went to L&D the baby was cleared. Patient states she had chest pain yesterday that has since resolved. Patient denies chest pain at this time. Patient denies shortness of breath. Patient denies difficulty in breathing. Patient states when she had chest pain the chest pain was worse with palpation of her chest wall and movement. Patient states that her chest pain is better with rest. MD Complaint: abdominal pain -: Sudden Location: RLQ Radiation: none Migration to: no migration Severity: severe Severity scale (0 -10): 9 Quality: stabbing Consistency: constant Improves With: rest Worsens With: movement, other Associated Symptoms: denies other symptoms. denies: nausea, vomiting, diarrhea, fever, chills, constipation, hematemesis, hematochezia, melena, hematuria, anorexia, syncope Treatments Prior to Arrival: other - Related Data LMP (females 10-50): Previous Rx's Medication Instructions Recorded Last Taken Type Ondansetron [Zofran Odt] 4 mg PO Q8HR PRN #4 tab.rapdis 01/05/15 Unknown Rx Vit-Fe Fumar-FA [ 1 each PO QDAY #30 tablet 01/05/15 Unknown Rx Vitamin] Azithromycin [Zithromax Z-NOEL] 0 mg PO DAILY 5 Days tab 09/20/15 Unknown Rx Benzonatate [Tessalon Perles] 100 mg PO Q8HR #30 capsule 09/20/15 Unknown Rx traMADoL [Ultram 50 MG tab] 50 mg PO Q6HR PRN #20 tablet 09/20/15 Unknown Rx traMADoL [Ultram] 50 mg PO Q6HR PRN #12 tablet 10/05/16 Unknown Rx Sulfamethoxazole/Trimethoprim 1 each PO BID #14 tablet 05/30/17 Unknown Rx [Bactrim DS TAB] Ciprofloxacin HCl [Cipro] 250 mg PO BID 7 Days #14 tablet 09/29/17 Unknown Rx Ibuprofen [Motrin 800 MG tab] 800 mg PO Q8HR PRN #20 tablet 11/07/18 Unknown Rx Allergies Allergy/AdvReac Type Severity Reaction Status Date / Time No Known Allergies Allergy Verified 05/29/17 22:11 ED Review of Systems ROS: Stated complaint: Other details as noted in HPI Constitutional: denies: chills, fever Eyes: denies: eye pain, eye discharge, vision change ENT: denies: ear pain, throat pain Respiratory: denies: cough, shortness of breath, wheezing Cardiovascular: denies: chest pain, palpitations Endocrine: no symptoms reported Gastrointestinal: abdominal pain. denies: nausea, diarrhea Genitourinary: denies: urgency, dysuria, discharge Musculoskeletal: denies: back pain, joint swelling, arthralgia Skin: denies: rash, lesions Neurological: denies: headache, weakness, paresthesias Psychiatric: denies: anxiety, depression Hematological/Lymphatic: denies: easy bleeding, easy bruising ED Past Medical Hx - Past Medical History Previous Medical History?: Yes Hx Hypertension: No Hx Congestive Heart Failure: No Hx Diabetes: No Hx Deep Vein Thrombosis: No Hx Renal Disease: No Hx Sickle Cell Disease: No Hx Seizures: No Hx Asthma: No Hx COPD: No Hx HIV: No Additional medical history: OBESITY, eclampsia - Surgical History Past Surgical History?: Yes Additional Surgical History: 05/13/14 - Family History Family history: no significant - Social History Smoking Status: Never Smoker Substance Use Type: None - Medications Home Medications: Home Medications Medication Instructions Recorded Confirmed Last Taken Type Ondansetron [Zofran Odt] 4 mg PO Q8HR PRN #4 tab.rapdis 01/05/15 Unknown Rx Vit-Fe Fumar-FA [ 1 each PO QDAY #30 tablet 01/05/15 Unknown Rx Vitamin] Azithromycin [Zithromax Z-NOEL] 0 mg PO DAILY 5 Days tab 09/20/15 Unknown Rx Benzonatate [Tessalon Perles] 100 mg PO Q8HR #30 capsule 09/20/15 Unknown Rx traMADoL [Ultram 50 MG tab] 50 mg PO Q6HR PRN #20 tablet 09/20/15 Unknown Rx traMADoL [Ultram] 50 mg PO Q6HR PRN #12 tablet 10/05/16 Unknown Rx Sulfamethoxazole/Trimethoprim 1 each PO BID #14 tablet 05/30/17 Unknown Rx [Bactrim DS TAB] Ciprofloxacin HCl [Cipro] 250 mg PO BID 7 Days #14 tablet 09/29/17 Unknown Rx Ibuprofen [Motrin 800 MG tab] 800 mg PO Q8HR PRN #20 tablet 11/07/18 Unknown Rx ED Physical Exam - General Limitations: No Limitations General appearance: alert, in no apparent distress - Head Head exam: Present: atraumatic, normocephalic - Eye Eye exam: Present: normal appearance - ENT ENT exam: Present: mucous membranes moist - Neck Neck exam: Present: normal inspection, full ROM. Absent: tenderness, meningismus - Respiratory Respiratory exam: Present: normal lung sounds bilaterally, chest wall tendernes s. Absent: respiratory distress, wheezes, rales, rhonchi, stridor, accessory muscle use, decreased breath sounds, prolonged expiratory - Cardiovascular Cardiovascular Exam: Present: regular rate, normal rhythm. Absent: systolic murmur, diastolic murmur, rubs, gallop - GI/Abdominal GI/Abdominal exam: Present: soft, tenderness (rlq ttp), normal bowel sounds - Extremities Exam Extremities exam: Present: normal inspection - Back Exam Back exam: Present: normal inspection - Neurological Exam Neurological exam: Present: alert, oriented X3 - Psychiatric Psychiatric exam: Present: normal affect, normal mood - Skin Skin exam: Present: warm, dry, intact, normal color. Absent: rash ED Course Vital Signs 07/15/19 07/15/19 07/16/19 23:46 23:48 00:56 Temperature 99.0 F 98.3 F Pulse Rate 90 111 H Respiratory 18 Rate Blood Pressure 108/53 Blood Pressure 122/71 [Right] O2 Sat by Pulse 96 Oximetry 07/16/19 00:57 Temperature 98.3 F Pulse Rate 111 H Respiratory 18 Rate Blood Pressure 122/71 Blood Pressure [Right] O2 Sat by Pulse 96 Oximetry - Reevaluation(s) Reevaluation #1: I discussed all results the patient. Discussed plan of care with patient. Patient agrees with plan of care and admission. 07/16/19 06:37 - Consultations Consultation #1: WEAVE ROOM SUPERVISOR consultation, Dr. Carrillo. Dr. Carrillo agrees the patient to be admitted to observation for serial checks and a possible abdominal MRI. 07/16/19 06:37 Consultation #2: I discussed case with Dr. Camarena. Dr. Camarena agrees with plan of care and admission and sobs and Dr. Camarena wants an MRI of the abdomen ordered. 07/16/19 07:01 ED Medical Decision Making - Lab Data Result diagrams: 07/16/19 03:56 07/16/19 03:56 - EKG Data -: EKG Interpreted by Me EKG shows normal: sinus rhythm, axis, intervals, QRS complexes, ST-T waves Rate: normal - Radiology Data Radiology results: report reviewed US abdomen limited INDICATION / CLINICAL INFORMATION: rlq pain. COMPARISON: None available. FINDINGS: The instrumentation technologist measured a heterogeneously hypoechoic 7.2 x 6.7 x 6.3 cm focus in the right lower quadrant. This is nonspecific. IMPRESSION: 1. Heterogeneous hypoechoic focus in the right lower quadrant measured by the instrumentation technologist. This is nonspecific and could be a loop of colon. If clinical suspicion for acute appendicitis is high, CT should be considered. OBSTETRIC ULTRASOUND INDICATION: Right lower quadrant pain COMPARISON: No prior relevant imaging studies are available for comparison. TECHNIQUE: Transabdominal imaging was performed. FINDINGS: Single viable intrauterine is identified. lie: Cephalic. Heart rate: 127 bpm. bladder, diaphragm, heart, stomach, cord and its insertion, kidneys, spine, and included intracranial structures are unremarkable. measurements are as follows: Biparietal diameter 7.0 cm, 28 weeks 0 days Head circumference 25.9 cm, 28 weeks 1 day Abdominal circumference 25.9 cm, 30 weeks 0 days Femur length 5.3 cm, 28 weeks 1 day Amniotic fluid index is 17cm, within normal limits. No placental abnormalities are seen. There is a grade 1 anterior placenta. CONCLUSION: Single viable intrauterine with sonographic gestational age of 28 weeks 4 days. - Medical Decision Making Patient is a 24-year-old female presents emergency with right lower quadrant pain. Patient had a remote complaining of chest pain but patient stated chest pain had resolved prior to coming to the emergency room. Patient initially seen in the L&D area and from a standpoint was cleared. Patient initial evaluation showed a low-grade fever. Patient found to have an elevated WBC. Patient had an ultrasound of her right lower quadrant which was nonspecific and recommended a CT to rule out appendicitis. Patient is currently 28 weeks . Patient also had a WEAVE ROOM SUPERVISOR ultrasound done which confirmed no acute findings with the baby. Patient will be admitted to the primary WEAVE ROOM SUPERVISOR service and a general surgery consult placed. Patient will have an MRI done of her abdomen and pelvis to rule out appendicitis and she is . - Differential Diagnosis appendicitis, right lower quadrant pain. Chest wall tenderness. Critical Care Time: Yes Critical care time in (mins) excluding proc time.: 35 Critical care attestation.: If time is entered above; I have spent that time in minutes in the direct care of this critically ill patient, excluding procedure time. Critical Care Time: 35 minutes ED Disposition Clinical Impression: Tenderness of chest wall Qualifiers: Weeks of gestation: 28 weeks Qualified Code(s): Z3A.28 - 28 weeks gestation of Abdominal pain Qualifiers: Abdominal location: lower abdomen, unspecified Qualified Code(s): R10.30 - Lower abdominal pain, unspecified Elevated WBC count Qualifiers: Leukocytosis type: unspecified Qualified Code(s): D72.829 - Elevated white blood cell count, unspecified Disposition: DC-09 OP ADMIT IP TO THIS HOSP Is pt being admited?: No Does the pt Need Aspirin: No Condition: Serious Time of Disposition: 06:34
[2019-07-16 04:20] LABS: Basophils # (Auto) 0.1 K/mm3 (0.0-0.1); Basophils % (Auto) 0.7 % (0.0-1.8); Eosinophils # (Auto) 0.1 K/mm3 (0.0-0.4); Eosinophils % (Auto) 0.6 % (0.0-4.3); Hematocrit 30.7 % (30.3-42.9); Hemoglobin 10.4 gm/dl (10.1-14.3); Lymphocytes # (Auto) 2.6 K/mm3 (1.2-5.4); Lymphocytes % (Auto) 18.6 % (13.4-35.0); Mean Corpuscular HGB Conc 34 % (30-34); Mean Corpuscular Volume 78 fl (79-97); Platelet Count 254 K/mm3 (140-440); Red Blood Count 3.94 M/mm3 (3.65-5.03); Red Cell Distribution Width 13.7 % (13.2-15.2)
[2019-07-16 04:28] LABS: INR 1.01 (0.87-1.13); Partial Thromboplastin Time 27.5 Sec. (24.2-36.6)
[2019-07-16 04:46] LABS: Alanine Aminotransferase 10 units/L (7-56); Albumin 3.2 g/dL (3.9-5); BUN/Creatinine Ratio 13; Blood Urea Nitrogen 5 mg/dL (7-17); Calcium 8.8 mg/dL (8.4-10.2); Hemolysis Index 4
--- NOTE | 2019-07-16 05:58 | Ultrasound Report ---
US abdomen limited INDICATION / CLINICAL INFORMATION: rlq pain. COMPARISON: None available. FINDINGS: The magnetic prospecting supervisor measured a heterogeneously hypoechoic 7.2 x 6.7 x 6.3 cm focus in the right lower lyubov drant. This is nonspecific. IMPRESSION: 1. Heterogeneous hypoechoic focus in the right lower quadrant measured by the magnetic prospecting supervisor. This is no nspecific and could be a loop of colon. If clinical suspicion for acute appendicitis is high, CT shou ld be considered. Signer Name: Jorge Rodriugez MD Signed: 07/16/2019 5:53 AM Workstation Name: [id number]
--- NOTE | 2019-07-16 06:00 | Ultrasound Report ---
OBSTETRIC ULTRASOUND INDICATION: Right lower quadrant pain COMPARISON: No prior relevant imaging studies are available for comparison. TECHNIQUE: Transabdominal imaging was performed. FINDINGS: Single viable intrauterine is identified. lie: Cephalic. Heart rate: 127 bpm. bladder, diaphragm, heart, stomach, cord and its insertion, kidneys, spine, and included intrac ranial structures are unremarkable. measurements are as follows: Biparietal diameter 7.0 cm, 28 weeks 0 days Head circumference 25.9 cm, 28 weeks 1 day Abdominal circumference 25.9 cm, 30 weeks 0 days Femur length 5.3 cm, 28 weeks 1 day Amniotic fluid index is 17cm, within normal limits. No placental abnormalities are seen. There is a grade 1 anterior placenta. CONCLUSION: Single viable intrauterine with sonographic gestational age of 28 weeks 4 days. Signer Name: Jorge Rodriguez MD Signed: 07/16/2019 5:56 AM Workstation Name: [id number]
--- NOTE | 2019-07-16 09:59 | Consultation ---
History of Present Illness Consult date: 07/16/19 Reason for consult: abdominal pain Requesting physician: CHUYITA CAPELLAN III Chief complaint: abdominal pain since yesterday - History of present illness History of present illness: 24yo F, 28 weeks , presents with acute onset of severe abdominal pain that began yesterday. Denies any known cause. Reports that she had the exact same pain 2 weeks ago. The location and quality of the pain was exactly the same. This time it was more intense. That pain resolved after about 1-1/2 days. Denies any radiation of pain. Denies any fevers, chills, nausea, vomiting. Reports that it was painful to urinate today. +loss of appetite Past History Past Medical History: No medical history Past Surgical History: Social history: denies: smoking, alcohol abuse Family history: no significant family history Medications and Allergies Allergies Allergy/AdvReac Type Severity Reaction Status Date / Time No Known Allergies Allergy Verified 05/29/17 22:11 Home Medications Medication Instructions Recorded Confirmed Last Taken Type Ondansetron [Zofran Odt] 4 mg PO Q8HR PRN #4 tab.rapdis 01/05/15 Unknown Rx Vit-Fe Fumar-FA [ 1 each PO QDAY #30 tablet 01/05/15 Unknown Rx Vitamin] Azithromycin [Zithromax Z-NOEL] 0 mg PO DAILY 5 Days tab 09/20/15 Unknown Rx Benzonatate [Tessalon Perles] 100 mg PO Q8HR #30 capsule 09/20/15 Unknown Rx traMADoL [Ultram 50 MG tab] 50 mg PO Q6HR PRN #20 tablet 09/20/15 Unknown Rx traMADoL [Ultram] 50 mg PO Q6HR PRN #12 tablet 10/05/16 Unknown Rx Sulfamethoxazole/Trimethoprim 1 each PO BID #14 tablet 05/30/17 Unknown Rx [Bactrim DS TAB] Ciprofloxacin HCl [Cipro] 250 mg PO BID 7 Days #14 tablet 09/29/17 Unknown Rx Ibuprofen [Motrin 800 MG tab] 800 mg PO Q8HR PRN #20 tablet 11/07/18 Unknown Rx Review of Systems - Constitutional poor appetite, no fever, no chills, no chronic pain - Cardiovascular no chest pain, no shortness of breath - Respiratory no cough - Gastrointestinal abdominal pain, constipation (chronic), loss of appetite, no nausea, no vomiting, no change in bowel habits, no hematemesis, no coffee ground emesis, no BRBPR, no melena, no hematochezia, no heartburn, no indigestion, no belching, no dyspepsia/bloating - Genitourinary Genitourinary: dysuria - Muskuloskeletal low back pain (chronic during - not new) - Integumentary no rash, no wounds Exam Vital Signs Pulse BP 90 108/53 07/15/19 23:46 07/15/19 23:46 - General physical appearance Positive: well developed, well nourished, no distress, obese. Negative: chronically ill - Eyes Positive: normal occular movement. Negative: icteric - Respiratory Positive: normal expansion, normal respiratory effort, clear to auscultation - Cardiovascular Rhythm: regular - Abdomen Abdomen: Present: soft, tender (focal tenderness in the right groin region. No tenderness along right side of abdomen), bowel sounds normal, other (). Absent: guarding, rigid, wound - Neurologic Neurologic: alert and oriented to time, place and person, motor strength and sensation are grossly intact - Psychiatric Psychiatric: appropriate mood/affect, intact judgment & insight, cooperative Results - Labs 07/16/19 03:56 07/16/19 03:56 Abnormal lab results 07/16/19 07/16/19 07/16/19 Range/Units 03:56 03:56 03:56 WBC 13.8 H (4.5-11.0) K/mm3 MCV 78 L (79-97) fl MCH 27 L (28-32) pg [place] # 1.0 H (0.0-0.8) K/mm3 Seg Neutrophils % 73.1 H (40.0-70.0) % Seg Neutrophils # 10.1 H (1.8-7.7) K/mm3 Sodium 136 L (137-145) mmol/L Carbon Dioxide 21 L (22-30) mmol/L BUN 5 L (7-17) mg/dL Creatinine 0.4 L (0.7-1.2) mg/dL Glucose 102 H (65-100) mg/dL Total Protein 6.0 L (6.3-8.2) g/dL Albumin 3.2 L (3.9-5) g/dL HCG, Quant 9158 H (0-4) mIU/mL Diabetes panel 07/16/19 Range/Units 03:56 Sodium 136 L (137-145) mmol/L Potassium 3.7 (3.6-5.0) mmol/L Chloride 102.2 (98-107) mmol/L Carbon Dioxide 21 L (22-30) mmol/L BUN 5 L (7-17) mg/dL Creatinine 0.4 L (0.7-1.2) mg/dL Glucose 102 H (65-100) mg/dL Calcium 8.8 (8.4-10.2) mg/dL AST 13 (5-40) units/L ALT 10 (7-56) units/L Alkaline Phosphatase 94 (35-129) units/L Total Protein 6.0 L (6.3-8.2) g/dL Albumin 3.2 L (3.9-5) g/dL Calcium panel 07/16/19 Range/Units 03:56 Calcium 8.8 (8.4-10.2) mg/dL Albumin 3.2 L (3.9-5) g/dL Pituitary panel 07/16/19 Range/Units 03:56 Sodium 136 L (137-145) mmol/L Potassium 3.7 (3.6-5.0) mmol/L Chloride 102.2 (98-107) mmol/L Carbon Dioxide 21 L (22-30) mmol/L BUN 5 L (7-17) mg/dL Creatinine 0.4 L (0.7-1.2) mg/dL Glucose 102 H (65-100) mg/dL Calcium 8.8 (8.4-10.2) mg/dL Adrenal panel 07/16/19 Range/Units 03:56 Sodium 136 L (137-145) mmol/L Potassium 3.7 (3.6-5.0) mmol/L Chloride 102.2 (98-107) mmol/L Carbon Dioxide 21 L (22-30) mmol/L BUN 5 L (7-17) mg/dL Creatinine 0.4 L (0.7-1.2) mg/dL Glucose 102 H (65-100) mg/dL Calcium 8.8 (8.4-10.2) mg/dL Total Bilirubin 0.20 (0.1-1.2) mg/dL AST 13 (5-40) units/L ALT 10 (7-56) units/L Alkaline Phosphatase 94 (35-129) units/L Total Protein 6.0 L (6.3-8.2) g/dL Albumin 3.2 L (3.9-5) g/dL - Imaging US - abdomen: report reviewed Assessment and Plan - Patient Problems (1) Abdominal pain Current Visit: Yes Status: Acute Qualifiers: Abdominal location: lower abdomen, unspecified Qualified Code(s): R10.30 - Lower abdominal pain, unspecified Plan to address problem: Pt stable. By her history and exam, this does not sound like appendicitis. As she had the exact same pain 2 weeks ago that lasted for a couple of days, this is more likely a noninfectious issue. Generally, we would expect upward migration of the appendix as the progresses. The entire right side of the abdomen is completely benign. Her pain is in the region of the right groin. I wonder if this could be ligament pain. We should check a UA. We were unable to get an MRI today due to the patient's inability to lay on her back. As my suspicion is low for appendicitis, I would not recommend that we get a CT scan. Would recommend that we observe her for now. Would focus on making her comfortable and managing her pain. Ok to start a clear liquid diet. Will follow along. Please call with questions. time=30min
[~2019-07-16 10:46] MED LIST: LACTATED RINGERS 2,000 ML ONE; SODIUM CHLORIDE 0.9% 1000 ML 1,000 ML IV ONE; SODIUM CHLORIDE 0.9% 1000 ML 1,000 ML ONE
--- NOTE | 2019-07-16 12:49 | History and Physical Report ---
History of Present Illness Date of examination: 07/16/19 Date of admission: 07/16/19 Chief complaint: Right sided pain/Third trimester History of present illness: 24 yo at 28 weeks came in for right sided pain. Patient had pain starting last week. She was evlauated in L&D and sent to ER for chest pain but resolved and Er recommneded that she has inpatient and surgery to evaluate for appendicitis. Past History Past Medical History: no pertinent history Past Surgical History: section (x1) Social history: single. denies: smoking, alcohol abuse, prescription drug abuse - Obstetrical History Expected Date of Delivery: 10/06/19 Actual Gestation: 28 Week(s) 2 Day(s) : 2 Para: 1 Hx # Term Pregnancies: 1 Number of Pregnancies: 0 Spontaneous Abortions: 0 Induced : 0 Number of Living Children: 1 Medications and Allergies Allergies Allergy/AdvReac Type Severity Reaction Status Date / Time No Known Allergies Allergy Verified 05/29/17 22:11 Home Medications Medication Instructions Recorded Confirmed Last Taken Type Ondansetron [Zofran Odt] 4 mg PO Q8HR PRN #4 tab.rapdis 01/05/15 Unknown Rx Vit-Fe Fumar-FA [ 1 each PO QDAY #30 tablet 01/05/15 Unknown Rx Vitamin] Azithromycin [Zithromax Z-NOEL] 0 mg PO DAILY 5 Days tab 09/20/15 Unknown Rx Benzonatate [Tessalon Perles] 100 mg PO Q8HR #30 capsule 09/20/15 Unknown Rx traMADoL [Ultram 50 MG tab] 50 mg PO Q6HR PRN #20 tablet 09/20/15 Unknown Rx traMADoL [Ultram] 50 mg PO Q6HR PRN #12 tablet 10/05/16 Unknown Rx Sulfamethoxazole/Trimethoprim 1 each PO BID #14 tablet 05/30/17 Unknown Rx [Bactrim DS TAB] Ciprofloxacin HCl [Cipro] 250 mg PO BID 7 Days #14 tablet 09/29/17 Unknown Rx Ibuprofen [Motrin 800 MG tab] 800 mg PO Q8HR PRN #20 tablet 11/07/18 Unknown Rx Review of Systems All systems: negative - Vital Signs Vital signs: Vital Signs Pulse BP 90 108/53 07/15/19 23:46 07/15/19 23:46 Temp Pulse Resp BP Pulse Ox 98.3 F 75 16 111/44 99 07/16/19 00:57 07/16/19 09:55 07/16/19 09:55 07/16/19 09:55 07/16/19 09:55 - Physical Exam Breasts: Positive: normal Cardiovascular: Regular rate, Normal S1 Lungs: Positive: Clear to auscultation, Normal air movement Abdomen: Positive: normal appearance, soft, normal bowel sounds. Negative: distention, tenderness, guarding Genitourinary (Female): Positive: normal external genitalia, normal perenium Vagina: Positive: normal moisture Uterus: Positive: normal size, normal contour Anus/Rectum: Positive: normal perianal skin, heme negative Extremities: Positive: normal Deep Tendon Reflex Grade: Normal +2 - Obstetrical FHR: category 1 Results Result Diagrams: 07/16/19 03:56 07/16/19 03:56 Abnormal lab results 07/16/19 07/16/19 07/16/19 Range/Units 03:56 03:56 03:56 WBC 13.8 H (4.5-11.0) K/mm3 MCV 78 L (79-97) fl MCH 27 L (28-32) pg [place] # 1.0 H (0.0-0.8) K/mm3 Seg Neutrophils % 73.1 H (40.0-70.0) % Seg Neutrophils # 10.1 H (1.8-7.7) K/mm3 Sodium 136 L (137-145) mmol/L Carbon Dioxide 21 L (22-30) mmol/L BUN 5 L (7-17) mg/dL Creatinine 0.4 L (0.7-1.2) mg/dL Glucose 102 H (65-100) mg/dL Total Protein 6.0 L (6.3-8.2) g/dL Albumin 3.2 L (3.9-5) g/dL HCG, Quant 9158 H (0-4) mIU/mL All other labs normal. Assessment and Plan A/P IUP 28 weeks RQ pain await surgery consult today routine antepartum orders continuous monitoring GBS uria
[2019-07-16] MEDS ORDERED: MAGNESIUM HYDROXIDE (MOM) ORAL LIQD UDC PO PRN (12:55)
[2019-07-16] MEDS ORDERED: SENNOSIDES/DOCUSATE SODIUM 8.6/50 MG TAB PO PRN (12:55)
[2019-07-16] MEDS ORDERED: SIMETHICONE 80 MG CHEW TAB PO PRN (12:55)
[2019-07-16] MEDS ORDERED: ONDANSETRON 4 MG/2 ML INJ IV PRN (12:55)
[2019-07-16] MEDS ORDERED: ALUM-MAG HYDROXIDE-SIMETHICONE 200-200-20MG/5ML ORAL LIQD 30 ML PO PRN (12:55)
[2019-07-16] MEDS ORDERED: ACETAMINOPHEN 325 MG TAB PO PRN (12:55)
[2019-07-16] MEDS ORDERED: diphenhydrAMINE 25 MG CAP PO PRN (12:55)
[2019-07-16] MEDS ORDERED: DOCUSATE SODIUM 100 MG CAP PO PRN (12:55)
[2019-07-16] MEDS ORDERED: LACTATED RINGERS 1,000 ML IV SCH (13:00)
--- NOTE | 2019-07-16 13:21 | Consultation ---
History of Present Illness Reason for consult: other (24 yo at 28 .1 weeks presented for right sided pain. Patient reported pain starting last week. 07/16/2019 Er recommneded that she has inpatient and surgery to evaluate for appendicitis. Patient received ABD US . Reports unable to complete MRI . Patient denies chills , N/V, SOB , chest pain, and DFM . In addition patient denies sxs of PreEclampsia . Patient is tolerating her clear diet well . ) Past History Past Medical History: no pertinent history Past Surgical History: section (x1) - Obstetrical History : 2 Medications and Allergies Allergies Allergy/AdvReac Type Severity Reaction Status Date / Time No Known Allergies Allergy Verified 05/29/17 22:11 Home Medications Medication Instructions Recorded Confirmed Last Taken Type Ondansetron [Zofran Odt] 4 mg PO Q8HR PRN #4 tab.rapdis 01/05/15 Unknown Rx Vit-Fe Fumar-FA [ 1 each PO QDAY #30 tablet 01/05/15 Unknown Rx Vitamin] Azithromycin [Zithromax Z-NOEL] 0 mg PO DAILY 5 Days tab 09/20/15 Unknown Rx Benzonatate [Tessalon Perles] 100 mg PO Q8HR #30 capsule 09/20/15 Unknown Rx traMADoL [Ultram 50 MG tab] 50 mg PO Q6HR PRN #20 tablet 09/20/15 Unknown Rx traMADoL [Ultram] 50 mg PO Q6HR PRN #12 tablet 10/05/16 Unknown Rx Sulfamethoxazole/Trimethoprim 1 each PO BID #14 tablet 05/30/17 Unknown Rx [Bactrim DS TAB] Ciprofloxacin HCl [Cipro] 250 mg PO BID 7 Days #14 tablet 09/29/17 Unknown Rx Ibuprofen [Motrin 800 MG tab] 800 mg PO Q8HR PRN #20 tablet 11/07/18 Unknown Rx Active Meds: Active Medications Acetaminophen (Tylenol) 650 mg PO Q4H PRN PRN Reason: Pain MILD(1-3)/Fever >100.5/NERI Al Hydrox/Mg Hydrox/Simethicone (Alum-Mag Hydrox-Simeth 208-699-26cg/5ml) 30 ml PO Q6H PRN PRN Reason: Indigestion Diphenhydramine HCl (Benadryl) 25 mg PO Q6H PRN PRN Reason: Itching Docusate Sodium (Colace) 100 mg PO Q12H PRN PRN Reason: Constipation Lactated Ringer's (Lactated Ringers) 1,000 mls @ 125 mls/hr IV DIRECT REAGAN Magnesium Hydroxide (Milk Of Magnesia) 30 ml PO QHS PRN PRN Reason: Laxative Effect Multivitamins/Iron/Calcium ( Vitamin) 1 each PO QDAY REAGAN Ondansetron HCl (Zofran) 4 mg IV Q6H PRN PRN Reason: Nausea And Vomiting Senna/Docusate Sodium (Senokot S) 2 tab PO Q12H PRN PRN Reason: Laxative Effect Simethicone (Mylicon) 80 mg PO Q6H PRN PRN Reason: Gas pain Sodium Chloride (Sodium Chloride Flush Syringe 10 Ml) 10 ml IV PRN PRN PRN Reason: LINE FLUSH Review of Systems Constitutional: no fever, no chills, no sweats, no weakness Eyes: other (change in vision ) Ears, nose, mouth and throat: deferred Cardiovascular: no palpitations, no rapid/irregular heart beat, no edema, no syncope, no shortness of breath, no high blood pressure Breasts: deferred Gastrointestinal: abdominal pain (LUQ pain " that comes and goes . " 5 on a 1- 10 pain scale . RLQ pain whi9ch radiates to her hip ), no nausea, no vomiting, no diarrhea Genitourinary: no vaginal bleeding, no vaginal discharge, no leakage of fluid, no pelvic pain, no contractions Rectal Exam: deferred Musculoskeletal: no low back pain Integumentary: no pruritis Neurological: no headaches Endocrine: no palpatations Hematologic/Lymphatic: no easy bruising Allergic/Immunologic: no wheezing - Vital Signs Vital signs: Vital Signs Pulse BP 90 108/53 07/15/19 23:46 07/15/19 23:46 Temp Pulse Resp BP Pulse Ox 98.3 F 75 16 111/44 99 07/16/19 00:57 07/16/19 09:55 07/16/19 09:55 07/16/19 09:55 07/16/19 09:55 - Physical Exam Breasts: Positive: deferred Cardiovascular: Regular rate Abdomen: Positive: tenderness (LUQ and RLQ pain ). Negative: guarding Extremities: Positive: normal Deep Tendon Reflex Grade: Normal +2 - Obstetrical FHR: category 1 (for 28 weeks ) Uterine Contraction Monitor Mode: External Results Result Diagrams: 07/16/19 03:56 07/16/19 03:56 Abnormal lab results 07/16/19 07/16/19 07/16/19 Range/Units 03:56 03:56 03:56 WBC 13.8 H (4.5-11.0) K/mm3 MCV 78 L (79-97) fl MCH 27 L (28-32) pg [place] # 1.0 H (0.0-0.8) K/mm3 Seg Neutrophils % 73.1 H (40.0-70.0) % Seg Neutrophils # 10.1 H (1.8-7.7) K/mm3 Sodium 136 L (137-145) mmol/L Carbon Dioxide 21 L (22-30) mmol/L BUN 5 L (7-17) mg/dL Creatinine 0.4 L (0.7-1.2) mg/dL Glucose 102 H (65-100) mg/dL Total Protein 6.0 L (6.3-8.2) g/dL Albumin 3.2 L (3.9-5) g/dL HCG, Quant 9158 H (0-4) mIU/mL All other labs normal. Ultrasound: report reviewed (See [facility] chart for ABD and ultrasound reports ) Assessment and Plan A) IUP @ 28 . 1 weeks CHRISTINA of 10/07/2019 per LMP ABD pain -LUQ - S/P surgery evaluation - R/O appendicitis no confirmatory images - NO N/V - afebrile - stable WBC - under no ABX - tolerating PO clear diet - VSS RLQ pain - heterogeneously hyperechoic 7.2 x 6.7x 6.3 cm focus in RLQ ( " This is non specific and could be a loop of colon") Placenta , anterior with no placental abnormalities History of PreEclampsia / Eclampsia - stable BP with NO [employer] features - no baseline PIH labs - under no LDA History of C/S procedure Reported Positive GBS C+S Reports NIPT screened " Normal , Boy" P ) Remain in patient Confirmatory assessment to rule out appendicitis Continue current plan of care Disposition as per surgery Obtain baseline PIH labs
[2019-07-16 15:51] LABS: Color,Urine Yellow (Yellow)
[2019-07-16 15:52] LABS: Bilirubin,Urine NEG (Negative); Blood,Urine NEG (Negative); Mucus,Urine FEW /HPF; Protein,Urine <15 mg/dL mg/dL (Negative)
--- NOTE | 2019-07-16 16:45 | Event Note ---
Date: 07/16/19 Routine f/u - pt is standing in the room. Looks better. Pt reports that pain is decreasing just like it did 2 weeks ago. She is able to move easier now. If she does well with clear liquid diet, may advance as tolerated. If there are no issues tonight and she is feeling better tomorrow, I think it would be fine to d/c home tomorrow.
--- NOTE | 2019-07-17 09:38 | Progress Note ---
Assessment and Plan - Patient Problems (1) Abdominal pain Current Visit: Yes Status: Acute Qualifiers: Abdominal location: lower abdomen, unspecified Qualified Code(s): R10.30 - Lower abdominal pain, unspecified Plan to address problem: Pt stable. Abdominal pain has resolved. Does not appear to be appendicitis. Would advance diet as tolerated. Okay for discharge from my perspective. Fo llow-up as needed. Please call with questions Time=10min Subjective Date of service: 07/17/19 Patient Reports: Positive: no new complaints, feels better, pain is less (Right groin pain has resolved. Only has low back pain now), tolerating liquids well, afebrile, other (wants to go home) Objective Vital Signs - 12hr 07/17/19 07/17/19 07:55 07:56 Temperature 98.1 F Pulse Rate 81 81 Respiratory 18 Rate Blood Pressure 97/53 Blood Pressure 97/53 [Right] - General physical appearance no distress, no pain - Eyes normal occular movement - Respiratory normal expansion, normal respiratory effort - Abdomen soft - Psychiatric oriented to time, oriented to person, oriented to place, speech is normal, memory intact - Labs 07/16/19 03:56 07/16/19 03:56
[2019-07-17] MEDS ORDERED: PRENATAL VIT27-FE FUMARATE-FOLIC ACID VIT TAB PO SCH (10:00)
[2019-07-17 11:57] VITALS: BP 113/58
--- NOTE | 2019-07-17 12:05 | Progress Note ---
Assessment and Plan A/P IUP 28+ weeks RQ pain -resolve per surgery may be discharged home f/u in 1 weeks Subjective - Subjective Date of service: 07/17/19 Principal diagnosis: abdominal pain at 28 weeks Interval history: 24 yo at 28 weeks came in for right sided pain. Patient had pain starting last week. She was evlauated in L&D and sent to ER for chest pain but resolved and Er recommneded that she has inpatient and surgery to evaluate for appendicitis. Patient reports: movement normal, no new complaints, no loss of fluid, no vaginal bleeding, no contractions Objective - Vital Signs Vital Signs: Vital Signs - 12hr 07/17/19 07/17/19 07/17/19 07:55 07:56 11:56 Temperature 98.1 F Pulse Rate 81 81 94 H Respiratory 18 Rate Blood Pressure 97/53 113/58 Blood Pressure 97/53 [Right] - Exam Breasts: normal Cardiovascular: Regular rate, Normal S1 Lungs: Clear to auscultation, Normal air movement Abdomen: Present: normal appearance, soft, normal bowel sounds. Absent: distention, tenderness, guarding Vulva: both: normal Uterus: Present: normal, firm. Absent: bogginess, tenderness FHR: category 1 - Labs Labs: Abnormal Labs 07/16/19 07/16/19 07/16/19 03:56 03:56 03:56 WBC 13.8 H MCV 78 L MCH 27 L [place] # 1.0 H Seg Neutrophils % 73.1 H Seg Neutrophils # 10.1 H Sodium 136 L Carbon Dioxide 21 L BUN 5 L Creatinine 0.4 L Glucose 102 H Total Protein 6.0 L Albumin 3.2 L HCG, Quant 9158 H Laboratory Results - last 24 hr 07/16/19 07/16/19 14:00 19:00 Urine Color Yellow Urine Turbidity Slightly-cloudy Urine pH 7.0 Ur Specific [place] 1.012 Urine Protein <15 mg/dl Urine Glucose (UA) Neg Urine Ketones Neg Urine Blood Neg Urine Nitrite Neg Urine Bilirubin Neg Urine Urobilinogen 2.0 Ur Leukocyte Esterase Neg Urine WBC (Auto) 3.0 Urine RBC (Auto) 2.0 U Epithel Cells (Auto) 9.0 Urine Mucus Few Blood Type B POSITIVE Antibody Screen Negative
--- NOTE | 2019-07-17 12:07 | Discharge Summary ---
Providers - Providers Date of Admission: 07/16/19 Date of discharge: 07/17/19 Attending physician: AYAZ FIGUEROA MD 07/16/19 06:53 Consult to Physician [CONS] Routine Comment: Consulting Provider: VADIM BROWN Physician Instructions: Reason For Exam: abd pain, RLQ Primary care physician: AYAZ FIGUEROA MD Hospitalization Reason for admission: other Hospital course: Patient admitted for abdominal pain. SSurgery evaluated patietn. Improved sx. No s/sx of appendicitis per surgery. Recommneded that she be discharged home with f/u Condition at discharge: Good Disposition: [id number] TO HOME OR SELFCARE Plan - Provider Discharge Summary Activity: routine, no sex for 6 weeks, no strenuous exercise Diet: routine Instructions: routine Additional instructions: [] Smoking cessation referral if applicable(refer to patient education folder for contact #) [] Refer to [facility]'s [facility] Booklet Call your doctor immediately for: * Fever > 100.5 * Heavy vaginal bleeding ( >1 pad per hour) * Severe persistent headache * Shortness of breath * Reddened, hot, painful area to leg or breast * Drainage or odor from incision. * Keep incision clean and dry at all times and follow doctor's instructions regarding bathing/showering - Follow up plan Follow up: AYAZ FIGUEROA MD [Primary Care Provider] - 3-5 Days
[2019-07-17 14:05] LABS: Bilirubin,Urine NEG (Negative); Color,Urine Straw (Yellow)
[2019-07-17 14:06] LABS: Blood,Urine NEG (Negative); Protein,Urine <15 mg/dL mg/dL (Negative); Urobilinogen,Urine < 2.0 mg/dL (<2.0)
== END 2019-07-17 12:55 | disposition home or self-care (01) ==
LOC: LD 10:46 → TRG 10:46 → LD 10:46
PROVIDERS: ATTEND Obstetrics & Gynecology
DX: O26.892 Other specified pregnancy related conditions, second trimester (principal); R10.31 Right lower quadrant pain; Z3A.28 28 weeks gestation of pregnancy
CPT/HCPCS: 36415; 76705; 76805; 80053; 81001; 84484; 84702; 85025; 85610; 85730; 86850; 86900; 86901; 93005; 93010; J7030; J7120

== ENCOUNTER 2019-08-18 19:27 | Outpatient (CLI) | payer OTHER, MEDICAID ==
[2019-08-18 20:03] VITALS: BP 118/72
--- NOTE | 2019-08-18 23:45 | Ultrasound Report ---
ULTRASOUND BIOPHYSICAL PROFILE INDICATION: possible carbon monoxide expos. COMPARISON: None available. FINDINGS: breathing movement = 2 Gross body movement = 2 tone = 2 Qualitative amniotic fluid volume = 2 Total biophysical score = 8/8 Presentation is Cephalic. heart rate is 136 beats per minute. IMPRESSION: biophysical profile = 8/8 ULTRASOUND OB INDICATION / CLINICAL INFORMATION: possible carbon monoxide expos. COMPARISON: 08/16/2019 FINDINGS: Single viable intrauterine is seen in cephalic presentation with heart rate of 136 bpm. Amn iotic fluid index is 16.3 cm, within normal limits. IMPRESSION: 1. Single viable intrauterine . Amniotic fluid index is normal. Signer Name: Jorge Rodriguez MD Signed: 08/18/2019 11:41 PM Workstation Name: [id number]
== END 2019-08-18 22:14 | disposition still patient (30) ==
LOC: EDSTATUS 19:46 → TRG 19:49
PROVIDERS: ATTEND Obstetrics & Gynecology
DX: O36.8130 Decreased fetal movements, third trimester, not applicable or unspecified (principal); Z3A.33 33 weeks gestation of pregnancy
CPT/HCPCS: 76815; 76819

== ENCOUNTER 2019-08-18 22:28 | Emergency (ER) | payer OTHER, MEDICAID ==
[2019-08-18 22:39] VITALS: BP 125/81
== END 2019-08-19 02:30 | disposition left against medical advice (07) ==
LOC: ED 22:28
DX: O26.893 Other specified pregnancy related conditions, third trimester (principal); R42 Dizziness and giddiness; Z53.21 Procedure and treatment not carried out due to patient leaving prior to being seen by health care provider; Z3A.33 33 weeks gestation of pregnancy

== ENCOUNTER 2020-11-30 13:53 | Emergency (ER) | payer MEDICAID, OTHER ==
[2020-11-30 14:33] VITALS: BP 139/87
[2020-11-30 16:14] LABS: Basophils # (Auto) 0.1 K/mm3 (0.0-0.1); Basophils % (Auto) 0.6 % (0.0-1.8); Eosinophils # (Auto) 0.1 K/mm3 (0.0-0.4); Eosinophils % (Auto) 0.7 % (0.0-4.3); Hematocrit 41.8 % (30.3-42.9); Hemoglobin 14.4 gm/dl (10.1-14.3); Lymphocytes # (Auto) 1.9 K/mm3 (1.2-5.4); Lymphocytes % (Auto) 17.7 % (13.4-35.0); Mean Corpuscular HGB Conc 35 % (30-34); Mean Corpuscular Volume 81 fl (79-97); Monocytes # (Auto) 0.5 K/mm3 (0.0-0.8); Monocytes % (Auto) 4.3 % (0.0-7.3); Platelet Count 280 K/mm3 (140-440); Red Blood Count 5.19 M/mm3 (3.65-5.03); Red Cell Distribution Width 14.2 % (13.2-15.2)
[2020-11-30 16:16] LABS: Bacteria,Urine 1+ /HPF (Negative); Bilirubin,Urine NEG (Negative); Blood,Urine NEG (Negative); Color,Urine Yellow (Yellow); Mucus,Urine FEW /HPF; Protein,Urine <15 mg/dL mg/dL (Negative); RBC,Urine < 1.0 /HPF (0.0-6.0); Urobilinogen,Urine < 2.0 mg/dL (<2.0); WBC,Urine < 1.0 /HPF (0.0-6.0)
[2020-11-30 16:40] LABS: Alanine Aminotransferase 17 units/L (7-56); Albumin 4.2 g/dL (3.9-5); Blood Urea Nitrogen 9 mg/dL (7-17); Calcium 9.8 mg/dL (8.4-10.2); Hemolysis Index 6
[2020-11-30 16:44] LABS: BUN/Creatinine Ratio 15
== END 2020-11-30 17:20 | disposition left against medical advice (07) ==
LOC: ED 13:53
DX: R10.30 Lower abdominal pain, unspecified (principal); Z53.21 Procedure and treatment not carried out due to patient leaving prior to being seen by health care provider
CPT/HCPCS: 36415; 80053; 81001; 83735; 84703; 85025